=== PATIENT | male | born 1985 | race Caucasian/White ===

== ENCOUNTER 2021-10-29 10:31 | Emergency (ER) | payer BC, SELFPAY ==
--- NOTE | ~2021-10-29 | XR_ITS ---
EXAMINATION: XR shoulder LT min 2V DATE: 10/29/2021 10:55 INDICATION: Left shoulder injury. TECHNIQUE: 4 views of left shoulder were obtained. COMPARISON: None. FINDINGS: Bone alignment is normal. No fracture. Joint spaces are normal. IMPRESSION: 1. Normal left shoulder. Reviewed, dictated and finalized at location A. IMPRESSION: 1. Normal left shoulder.
[2021-10-29 10:43] VITALS: BP 131/79; PULSE 91; RESP 16; TEMP 37.1; O2SAT 99
--- NOTE | 2021-10-29 10:54 | ED.UPPEXIN ---
HPI - Extremity Injury (Upper) General Chief Complaint: Extremity Injury, Upper Stated Complaint: Injury to left shoulder Source: patient, family, RN notes reviewed and old records reviewed Mode of arrival: ambulatory Limitations: no limitations History of Present Illness HPI narrative: 35-year-old presents to [facility] with complaints of injury which occurred while playing paint ball yesterday.Patient reports that he dove to ground landing on left elbow which makenzie his left shoulder upwards. He states that he then crawled behind barricade and noticed pain to his left shoulder. Patient reports pain with mobility of left shoulder with some decrease strength noted with forward flexion muscle test..Circulation intact to left arm and fingers with strong pulses and brisk capillary refill, sensation is intact. MD complaint: injury to: left and shoulder Onset (ago): day(s) (1) Other injuries: none Place: outdoors Severity scale (1-10): 6 Treatments prior to arrival: cold therapy and NSAIDS Related Data Allergies Allergy/AdvReac Type Severity Reaction Status Date / Time No Known Allergies Allergy Verified 10/29/21 10:45 Review of Systems Review of Systems: CONSTITUTIONAL: Denies fever, chills, or sweats. EYES: Denies visual changes, redness, or discharge. ENT: Denies rhinorrhea, congestion, sore throat, or otalgia. CARDIOVASCULAR: Denies chest pain, palpitations, or edema. RESPIRATORY: Denies cough or dyspnea. GASTROINTESTINAL: Denies abdominal pain, nausea, vomiting, or diarrhea. GENITOURINARY: Denies dysuria or hematuria. SKIN: Denies rash or itching. MUSCULOSKELETAL: Denies back pain,left shoulder joint pain and top of left shoulder pain, denies any pain to left upper arm, or myalgia. NEUROLOGIC: Denies headache, numbness, or weakness. PSYCHIATRIC: Denies anxiety or depression. All systems reviewed & are unremarkable except as noted in HPI and below PMFSH Past Medical History Medical History (Updated 10/30/21 @ 20:20 by Gerri Campbell NP) Closed right hip fracture Exercise-induced asthma GERD (gastroesophageal reflux disease) Shoulder separation right traumatic Surgical History Surgical History (Updated 10/30/21 @ 20:21 by Gerri Campbell NP) History of ankle surgery right Social History Social History (Updated 10/30/21 @ 20:16 by Gerri Campbell NP) Smoking status: Former smoker Alcohol intake: current Substance use: current Substance use type: marijuana Living arrangements: with family Gender identity (if verbalized by the patient): Male Comments At time of signature, agree with nursing past medical, surgical, social and family history. There is no relevant family history pertinent to the presenting complaint Exam Narrative: GENERAL: Well-appearing, well-nourished, and in no acute distress. HEAD: Normocephalic, atraumatic. EYES: PERRLA and EOMI. ENT: Nares clear, no rhinorrhea or epistaxis. Mucous membranes moist.TM's normal with good light reflex, throat pink with no lesion or exudates or tonsil swelling NECK: Supple. no lymphadenopathy CHEST: Clear to auscultation. No respiratory distress.SAO2 99% on room air HEART: Regular rate and rhythm. No murmur heard. Normal peripheral pulses. ABDOMEN: Soft, nontender, nondistended, normal active bowel sounds. EXTREMITIES: Normal range of motion. No edema.Exception noted to pain with mobility of left shoulder with pain at A/C joint area and along top of left shoulder, Circulation and sensation is intact. SKIN: Warm, dry, no rash. NEURO: No focal deficits. Alert and oriented x3. Course Course Level of Care: Express Care Visit Vital Signs Vital signs: Vital Signs Temperature 37.1 C 10/29/21 10:43 Pulse Rate 91 10/29/21 10:43 Respiratory Rate 16 10/29/21 10:43 Blood Pressure 131/79 10/29/21 10:43 Pulse Oximetry 99 10/29/21 10:43 Oxygen Delivery Room Air 10/29/21 10:43 Temperature 37.1 C 10/29/21 10:43 Pulse R
== END 2021-10-29 11:42 | disposition home or self-care (01) ==
PROVIDERS: Emergency Provider Registered Nurse
DX: M25.512 Pain in left shoulder (principal); Z87.891 Personal history of nicotine dependence; J45.990 Exercise induced bronchospasm; K21.9 Gastro-esophageal reflux disease without esophagitis
CPT/HCPCS: 73030; 99213; G0463

== ENCOUNTER → 2022-05-07 16:57 | Outpatient (CLI) | payer BC, SELFPAY ==
--- NOTE | ~2022-05-07 | MR_ITS ---
MRI of the left shoulder Technique: Axial proton-density fat-sat images, coronal proton density fat-sat and T2 fat-sat images, and sagittal T1-weighted and T2 fat-sat images were acquired. Clinical History: Pain Findings: There is mild AC joint degenerative change. Coracoclavicular, coracoacromial, and coracohum eral ligaments are intact. Supraspinatus and infraspinatus tendons are intact, without partial or full-thickness tear. Subscapul tamica tendon is intact. Tendon of long head of the biceps is intact. Probable mild attenuation of the anterior labrum without definite discrete tear. Inferior glenohumeral ligament is intact. No effusion or degenerative change of the glenohumeral join t. No fluid distention of the subacromial/subdeltoid bursa. No muscle atrophy or edema. Impression: Probable mild attenuation of the anterior labrum without definite, discrete tear. Mild AC joint degenerative change. Reviewed, dictated and finalized at location . OMIZER Impression: Probable mild attenuation of the anterior labrum without definite, discrete tea r. Mild AC joint degenerative change.
== END ==
PROVIDERS: PCP Chiropractor; Visit Provider Chiropractor
DX: M19.012 Primary osteoarthritis, left shoulder (principal)
CPT/HCPCS: 73221